=== PATIENT | male | born 1945 | race Caucasian/White ===

== ENCOUNTER 2022-06-28 15:39 | Day surgery (SDC) | payer MEDICARE, OTHER ==
[2022-06-28] MEDS ORDERED: BUPIVACAINE 0.5% VIAL IJ ONE (15:40)
[2022-06-28] MEDS ORDERED: Depo-Medrol 40 MG/ML IM ONE (15:40)
[2022-06-28] MEDS ORDERED: Sodium Chloride 0.9(Preservative Free) 10 ML IJ ONE (15:40)
--- NOTE | 2022-06-28 20:53 | XRAY ---
Indication: Right greater trochanter bursa injection. Intraoperative fluoroscopy provided for 9 seconds. Single digital spot image submitted for interpretation demonstrates needle tip projecting lateral to the right greater trochanter. Small amount of contrast injected for needle tip placement. Correlate with intraoperative findings/report.
--- NOTE | 2022-06-28 20:55 | XRAY ---
Indication: Right knee injection. Intraoperative fluoroscopy provided for 7 seconds. Single digital spot image submitted for interpretation demonstrates needle tip projecting over the right femur intercondylar notch. Small amount of contrast injected for needle tip placement. Correlate with intraoperative findings/report.
--- NOTE | 2022-06-28 20:56 | XRAY ---
Indication: Left knee injection. Intraoperative fluoroscopy provided for 5 seconds. Single digital spot image submitted for interpretation demonstrates needle tip projecting over the left femur intercondylar notch. Small amount of contrast injected for needle tip placement. Correlate with intraoperative findings/report.
--- NOTE | 2022-06-29 08:42 | XRAY ---
5 seconds of fluoroscopy was used in surgery for a left intra-articular knee injection.
--- NOTE | 2022-06-29 08:43 | XRAY ---
9 seconds of fluoroscopy was used in surgery for a right greater trochanteric bursa injection.
--- NOTE | 2022-06-29 08:43 | XRAY ---
7 seconds of fluoroscopy was used in surgery for a right intra-articular knee injection.
== END 2022-06-28 18:30 | disposition home or self-care (01) ==
LOC: SDC-PAIN 15:39
PROVIDERS: ATTEND Psychiatry & Neurology Pain Medicine
DX: M17.0 Bilateral primary osteoarthritis of knee (principal); M16.12 Unilateral primary osteoarthritis, left hip; Z79.899 Other long term (current) drug therapy
CPT/HCPCS: 20610; 20611; 73501; 73560; 76942; 77002; J1030; Q9966

== ENCOUNTER 2022-10-25 15:34 | Day surgery (SDC) | payer MEDICARE, OTHER ==
[2022-10-25] MEDS ORDERED: LIDOCAINE HCL 1% 50 MG/5 ML VL PF IJ ONE (15:35)
[2022-10-25] MEDS ORDERED: BUPIVACAINE 0.5% VIAL IJ ONE (15:35)
[2022-10-25] MEDS ORDERED: Depo-Medrol 40 MG/ML IM ONE (15:35)
--- NOTE | 2022-10-25 19:21 | XRAY ---
Indication: Left knee injection. Intraoperative fluoroscopy provided for 6 seconds. Single digital spot images submitted for interpretation demonstrates needle tip projecting over the left femur intercondylar notch. Small amount of contrast injected for needle tip placement. Correlate with intraoperative findings/report.
--- NOTE | 2022-10-25 19:21 | XRAY ---
Indication: Right knee injection. Intraoperative fluoroscopy provided for 11 seconds. Single digital spot images submitted for interpretation demonstrates needle tip projecting over the right femur intercondylar notch. Small amount of contrast injected for needle tip placement. Correlate with intraoperative findings/report.
--- NOTE | 2022-10-26 09:04 | XRAY ---
11 seconds of fluoroscopy was used in surgery for a right intra-articular knee and pes anserine bursa injection.
--- NOTE | 2022-10-26 09:05 | XRAY ---
6 seconds of fluoroscopy was used in surgery for a left intra-articular knee and pes anserine bursa injection.
== END 2022-10-25 18:15 | disposition home or self-care (01) ==
LOC: SDC-PAIN 15:34
PROVIDERS: ATTEND Psychiatry & Neurology Pain Medicine
DX: M17.0 Bilateral primary osteoarthritis of knee (principal); M70.51 Other bursitis of knee, right knee; M70.52 Other bursitis of knee, left knee; Z79.899 Other long term (current) drug therapy
CPT/HCPCS: 20610; 73560; 77002; 82947; J1030; J2001; Q9966

== ENCOUNTER 2024-01-02 13:40 | Day surgery (SDC) | payer MEDICARE, OTHER ==
[2024-01-02] MEDS ORDERED: Depo-Medrol 40 MG/ML IM ONE (13:41)
[2024-01-02] MEDS ORDERED: LIDOCAINE HCL 1% 50 MG/5 ML VL PF IJ ONE (13:41)
[2024-01-02] MEDS ORDERED: BUPIVACAINE 0.5% VIAL IJ ONE (13:41)
--- NOTE | 2024-01-02 20:13 | XRAY ---
Indication: Right knee injection Intraoperative fluoroscopy provided for 16 seconds. 2 digital spot image submitted for interpretation demonstrates needle tip projecting over the right femur intercondylar notch. Small amount of contrast injected for needle tip placement. Correlate with intraoperative findings/report.
--- NOTE | 2024-01-03 21:05 | XRAY ---
16 seconds of fluoroscopy was used in surgery for a right intra-articular knee injection.
== END 2024-01-02 17:11 | disposition home or self-care (01) ==
LOC: SDC-PAIN 13:40
PROVIDERS: ATTEND Psychiatry & Neurology Pain Medicine
DX: M17.11 Unilateral primary osteoarthritis, right knee (principal); Z79.899 Other long term (current) drug therapy
CPT/HCPCS: 20610; 73560; 77002; 82947; J2001; Q9966

== ENCOUNTER 2024-04-23 13:51 | Day surgery (SDC) | payer MEDICARE, OTHER ==
--- NOTE | 2024-04-23 17:00 | XRAY ---
Indication: Right knee injection. Intraoperative fluoroscopy provided for 6 seconds. Single digital spot images submitted for interpretation demonstrates needle tip projecting over right femur intercondylar notch. Small amount of contrast injected for needle tip placement. Correlate with intraoperative findings/report.
--- NOTE | 2024-04-23 17:01 | XRAY ---
6 seconds of fluoroscopy was used in surgery for a right intra-articular knee injection.
== END 2024-04-23 15:38 | disposition home or self-care (01) ==
LOC: SDC-PAIN 13:51
PROVIDERS: ATTEND Psychiatry & Neurology Pain Medicine
DX: M17.11 Unilateral primary osteoarthritis, right knee (principal); M70.51 Other bursitis of knee, right knee
CPT/HCPCS: 20550; 20610; 73560; 77002; 77003; 82947; Q9966

== ENCOUNTER 2025-01-03 12:35 | Emergency (ER) | payer MEDICARE, OTHER ==
[2025-01-03 13:16] VITALS: TEMP 97.2
--- NOTE | 2025-01-03 13:25 | ERPHSYRPT ---
- History of Present Illness Time Seen by Provider: 01/03/25 13:10 Source: patient Patient Subjective Stated Complaint: patient was cleaning out dog kennel 2 days ago began having mid level backpain, now pain is into lower back and having trouble walking Triage Nursing Assessment: jonathon brought to ED by his daughter, he is having ongoing back pain which started following cleaning dog kennel two days ago, has caused numbness and tingling in legs nad arms and first day wasnt able to even raise his arms above his shoulders. patient is alert and orientedx4, skin warm dry and intact, has tenderness in middle of back and upper area over left shoulder blade. Physician History: This is a 79-year-old male who presents with several days upper back pain has gradually started radiating to the right anterior chest patient describes this pain as sharp worse with movement patient denies any associated substernal chest pain or pressure or heaviness any cough hemoptysis shortness of breath dysuria pyuria hematuria patient does state he gets occasional numbness in his hands. No neck pain no head trauma and no flank pain Allergies/Adverse Reactions: No Known Drug Allergies Allergy (Verified 01/03/25 13:29) Home Medications: Carvedilol 3.125 mg [Coreg 3.125 MG] 3.125 mg PO BID 01/03/25 [History] Clopidogrel Bisulfate [Plavix] 75 mg PO DAILY 01/03/25 [History] Evolocumab [Repatha Syringe] 140 mg SQ QDP 01/03/25 [History] Ezetimibe 10 mg [Zetia 10 MG] 10 mg PO DAILY 01/03/25 [History] Famotidine 20 mg [Pepcid 20 MG] 20 mg PO DAILY 01/03/25 [History] Furosemide 20 mg [Lasix 20 mg] 20 mg PO DAILY 01/03/25 [History] Metformin HCl [Metformin ER Osmotic] 1,000 mg PO BID 01/03/25 [History] PANTOPRAZOLE 40 mg Tablet [Protonix 40MG Tablet] 40 mg PO DAILY 01/03/25 [History] Hx Tetanus, Diphtheria Vaccination/Date Given: Yes Hx Influenza Vaccination/Date Given: No Hx Pneumococcal Vaccination/Date Given: Yes Immunizations Up to Date: Yes Travel Risk - International Travel Have you traveled outside of the country in past 3 weeks: No - Emerging Infectious Disease Are you exhibiting symptoms associated with any current EIDs: No - Review of Systems Constitutional: No Fever, No Chills Eyes: No Symptoms Ears, Nose, & Throat: No Symptoms Respiratory: No Cough, No Dyspnea Cardiac: Chest Pain, No Edema, No Syncope Abdominal/Gastrointestinal: No Abdominal Pain, No Nausea, No Vomiting, No Diarrhea Genitourinary Symptoms: No Dysuria Musculoskeletal: Back Pain, No Neck Pain Skin: No Rash Neurological: No Dizziness, No Focal Weakness, No Sensory Changes Psychological: No Symptoms Endocrine: No Symptoms All Other Systems: Reviewed and Negative - Past Medical History Pertinent Past Medical History: Yes Neurological History: No Pertinent History Cardiac History: High Cholesterol, Hypertension Respiratory History: No Pertinent History Endocrine Medical History: No Pertinent History Musculoskeletal History: Arthritis Other Medical History: PSH: L KNEE FRACTURE AND ORIF A CHILD. PMH:NONE - Past Surgical History Past Surgical History: Yes Cardiac: Cardiac Catheterization, Cardiac Stent Musculoskeletal: Orthopedic Surgery, Other - Social History Smoking Status: Never smoker Exposure to second hand smoke: No - Social Determinants of Health Will the patient participate in the screening: Yes Do you worry about a steady place to live?: No Do you have any problems with any of the following?: No known problems In the past 12 months,have you had to go without utilities?: No Transportation Issues: No Has anyone in your support network made you feel unsafe?: No Have you or anyone in your house had to go w/o enough food: No - Nursing Vital Signs Nursing Vital Signs: Initial Vital Signs Blood Pressure 152/91 01/03/25 13:08 O2 Sat by Pulse Oximetry 96 01/03/25 13:08 Pain Scale Pain Intensity [Upper 10 Posterior Back] Pain Intensity 7 - Physical Exam General Appearance: no apparent distress, alert Eye Exam: PERRL/EOMI, eyes nml inspection Neck Exam: normal inspection, non-tender, supple, full range of motion, No meningismus, No midline tenderness Respiratory Exam: normal breath sounds, lungs clear, No respiratory distress Cardiovascular Exam: regular rate/rhythm, normal heart sounds Gastrointestinal Exam: soft, No tenderness, No mass Back Exam: other (Patient with Bilateral paravertebral tenderness of the thoracic spine no midline tenderness crepitus or step-off lesions) Extremity Exam: normal inspection, normal range of motion, No calf tenderness, No pedal edema Neurologic Exam: alert, oriented x 3, cooperative, chief data officer II-XII nml as tested, normal mood/affect, nml station & gait, sensation nml, No motor deficits Skin Exam: normal color, warm, dry, No rash SpO2: 98 Ordered Tests: Active Orders 24 hr Category Date Time Status EKG-ER Only STAT Care 01/03/25 16:02 Active CHEST 1 VIEW (PORTABLE) Stat Exams 01/03/25 13:19 Taken CBC W DIFF Stat Lab 01/03/25 13:30 Completed CMP Stat Lab 01/03/25 13:30 Completed TROPONIN Stat Lab 01/03/25 13:30 Completed Medication Summary Discontinued Medications Generic Name Dose Route Start Last Admin Trade Name Francisco PRN Reason Stop Dose Admin Cyclobenzaprine HCl 5 mg 01/03/25 13:21 01/03/25 13:43 Cyclobenzaprine Hcl 10 Mg Tablet PO 01/03/25 13:22 5 mg STAT ONE Administration Cyclobenzaprine HCl Confirm 01/03/25 13:40 Cyclobenzaprine Hcl 10 Mg Tablet Administered 01/03/25 13:41 Dose 10 mg .ROUTE .STK-MED ONE Ketorolac Tromethamine 15 mg 01/03/25 13:20 01/03/25 13:41 Ketorolac Tromethamine 30 Mg/Ml Inj IV 01/03/25 13:21 15 mg STAT ONE Administration Ketorolac Tromethamine Confirm 01/03/25 13:40 Ketorolac Tromethamine 30 Mg/Ml Inj Administered 01/03/25 13:41 Dose 30 mg .ROUTE .STK-MED ONE Lab/Rad Data: Laboratory Result Diagrams 01/03/25 13:30 01/03/25 13:30 Laboratory Results 01/03/25 01/03/25 Range/Units 13:30 13:30 WBC 7.7 (4.23-9.07) x10^3/uL RBC 4.63 (4.63-6.08) x10^6/uL Hgb 14.3 (13.7-17.5) g/dL Hct 43.0 (40.1-51.0) % MCV 92.9 H (79.0-92.2) fL MCH 30.9 (25.7-32.2) pg MCHC 33.3 (32.3-36.5) g/dL RDW 13.3 (11.6-14.4) % Plt Count 221 (163-337) x10^3/uL MPV 9.3 L (9.4-12.4) fL Gran % 61.6 (34.0-67.9) % Immature Gran % (Auto) 0.4 (0.001-0.429) % Nucleat RBC Rel Count 0.0 (0.00-0.2) % Eos # (Auto) 0.26 (0.04-0.54) x10^3/uL Immature Gran # (Auto) 0.03 (0.001-0.031) x10^3u/L Absolute Lymphs (auto) 1.38 (1.32-3.57) x10^3/uL Absolute Monos (auto) 1.21 H (0.30-0.82) x10^3/uL Absolute Nucleated RBC 0.00 (0.00-0.012) x10^3u/L Lymphocytes % 17.8 L (21.8-53.1) % Monocytes % 15.6 H (5.3-12.2) % Eosinophils % 3.4 (0.8-7.0) % Basophils % 1.2 (0.2-1.2) % Absolute Granulocytes 4.77 (1.78-5.38) x10^3/uL Basophils # 0.09 H (0.01-0.08) x10^3/uL Sodium 137 (135-145) mmol/L Potassium 4.4 (3.5-5.1) mmol/L Chloride 103 (98-107) mmol/L Carbon Dioxide 27 (22-30) mmol/L Anion Gap 12.4 (5-15) MEQ/L BUN 18 (9-20) mg/dL Creatinine 0.87 (0.66-1.25) mg/dL Estimated GFR 88.9 ML/MIN Glucose 165 H (74-106) mg/dL Calcium 9.4 (8.4-10.2) mg/dL Total Bilirubin 1.10 (0.2-1.3) mg/dL AST 24 (17-59) U/L ALT 26 (0-50) U/L Alkaline Phosphatase 108 (38-126) U/L Troponin I < 0.012 (0.000-0.033) ng/mL Serum Total Protein 7.4 (6.3-8.2) g/dL Albumin 4.4 (3.5-5.0) g/dL - Progress Progress: improved Progress Note: The patient had twelve-lead EKG was sinus rhythm nonspecific ST-T wave changes patient chest x-ray read by the radiologist negative patient CBC within normal limits chemistry remarkable glucose 165 troponin was negative. In the emergency room patient was given Toradol and Flexeril improvement in symptoms more likely this is a musculoskeletal upper back strain I will discharge patient on prednisone and Flexeril to follow-up with his doctor in 2 to 3 days differential diagnosis sprain strain 01/03/25 16:10 - Departure Departure Disposition: Home Clinical Impression: Thoracic back sprain Condition: Good Critical Care Time: No Referrals: ROBYN CORREA [Primary Care Provider, EMERGENCY MEDICINE] - Follow up/PCP as directed Instructions: Low Back Pain (DC) Prescriptions: Cyclobenzaprine HCl 10 mg [Flexeril 10 MG] 10 mg PO TID #12 tablet Prednisone 10 mg [Deltasone 10 mg] 50 mg PO DAILY #25 tablet
[2025-01-03] MEDS ORDERED: TORAdol 30 mg Injection ONE (13:40)
[2025-01-03] MEDS ORDERED: Cyclobenzaprine 10 MG ONE (13:40)
[2025-01-03] MEDS: TORAdol 30 mg Injection IV ONE (13:41)
[2025-01-03] MEDS: Cyclobenzaprine 10 MG PO ONE (13:43)
[2025-01-03 14:11] LABS: BASOPHIL % 1.2 % (0.2-1.2); Basophil (Absolute #) 0.09 x10^3/uL (0.01-0.08); Eosinophil (Absolute #) 0.26 x10^3/uL (0.04-0.54); Hematocrit 43.0 % (40.1-51.0); Hemoglobin 14.3 g/dL (13.7-17.5); IMMATURE GRAN # 0.03 x10^3u/L (0.001-0.031); IMMATURE GRAN % 0.4 % (0.001-0.429); Lymphocyte (Absolute #) 1.38 x10^3/uL (1.32-3.57); Mean Corpuscular Hemoglobin 30.9 pg (25.7-32.2); Mean Corpuscular Hgb Concent. 33.3 g/dL (32.3-36.5); Monocyte (Absolute #) 1.21 x10^3/uL (0.30-0.82); NUCLEATED RBC # 0.00 x10^3u/L (0.00-0.012); NUCLEATED RBC % 0.0 % (0.00-0.2); Platelet Count 221 x10^3/uL (163-337); Red Blood Count 4.63 x10^6/uL (4.63-6.08); White Blood Count 7.7 x10^3/uL (4.23-9.07)
[2025-01-03 14:40] LABS: Calcium 9.4 mg/dL (8.4-10.2); Carbon Dioxide 27 mmol/L (22-30); Creatinine 1 0.87 mg/dL (0.66-1.25); EST GLOMERULAR FILTRATION RATE 88.9 ML/MIN; Glucose 165 mg/dL (74-106); Potassium 4.4 mmol/L (3.5-5.1); SGOT/AST 24 U/L (17-59); SGPT/ALT 26 U/L (0-50); TROPONIN < 0.012 ng/mL (0.000-0.033); Total Protein 7.4 g/dL (6.3-8.2)
[2025-01-03 17:11] VITALS: O2SAT 97
[2025-01-03 18:08] VITALS: BP 110/53; PULSE 86; RESP 16
--- NOTE | 2025-01-03 20:21 | XRAY ---
Indication: Chest pain. Comparison: June 07, 2007 Portable chest demonstrates new mild right hemidiaphragm elevation with adjacent subsegmental atelectasis/scarring. Remaining heart and lungs unremarkable again with incidental small left hilar calcified nodes. Bony thorax intact with osteopenia and mild degenerative changes. Impression: Nonacute chest with chronic features.
== END 2025-01-03 18:08 | disposition home or self-care (01) ==
LOC: ED 12:35
DX: S23.3XXA Sprain of ligaments of thoracic spine, initial encounter (principal); X50.3XXA Overexertion from repetitive movements, initial encounter; X50.0XXA Overexertion from strenuous movement or load, initial encounter; I10 Essential (primary) hypertension; Z79.02 Long term (current) use of antithrombotics/antiplatelets; Z79.84 Long term (current) use of oral hypoglycemic drugs; Z79.899 Other long term (current) drug therapy

== ENCOUNTER 2025-01-29 08:15 | Day surgery (SDC) | payer MEDICARE, OTHER ==
--- NOTE | 2025-01-22 11:09 | HP ---
HISTORY OF PRESENT ILLNESS: The patient is a 79-year-old male who presents with a history of polyps. He had a scope several years ago. He had some breakthrough heartburn. He takes some Pepcid. PAST MEDICAL HISTORY: Coronary artery disease, hypertension, hyperlipidemia, diabetes. MEDICATIONS: Pepcid, Repatha, Zetia, Plavix, Lasix, carvedilol, metformin. PAST SURGICAL HISTORY: Cardiac stents, hernia repair, leg procedure. FAMILY HISTORY: Heart disease. SOCIAL HISTORY: Negative. ALLERGIES: Negative. REVIEW OF SYSTEMS: CONSTITUTIONAL: Denies fever or chills. CHEST: Denies shortness of breath. CARDIOVASCULAR: Regular rate and rhythm. ABDOMEN: Soft. PHYSICAL EXAMINATION: GENERAL: No acute distress. CARDIOVASCULAR: Regular rate and rhythm. RESPIRATORY: Nonlabored. No shortness of breath. ABDOMEN: Soft. ASSESSMENT: Epigastric pain, history of polyps. PLAN: EGD and colonoscopy with Dr. Vicente Reynaga. This report was dictated for Dr. Reynaga by Tia Enriquez NP.
[2025-01-29] MEDS ORDERED: Lactated Ringers 1,000 ML IV ONE (08:17)
[2025-01-29] MEDS: Lactated Ringers 1,000 ML IV SCH (08:41)
[2025-01-29] MEDS ORDERED: propofoL IV ONE ×2 (10:59→11:06)
[2025-01-29 11:47] VITALS: O2SAT 95
[2025-01-29 11:56] VITALS: BP 147/78; PULSE 58; RESP 16; TEMP 97.6
--- NOTE | 2025-01-30 10:49 | OP ---
SURGERY DATE/TIME: 01/29/2025 [id number] PREOPERATIVE DIAGNOSES: 1) Breakthrough epigastric pain. He has been on medication. 2) Five-year followup polyps. POSTOPERATIVE DIAGNOSES: 1) Mild hemorrhagic gastritis. He has been on medication. It looks like there has been just a little breakthrough. He probably could double his previous medicine for 4 to [address] Johnson. 2) Colonoscopic examination of the cecum, hot polypectomy of 1 cm polyp of the cecum, moderate sigmoid diverticulosis, moderate internal hemorrhoids. Anticipate followup. Unless he is symptomatic, I would think this visit is his last screening colonoscopic examination. PROCEDURES: 1) Colonoscopy to cecum with hot polypectomy x1. 2) Esophagogastroduodenoscopy. SURGEON: Vicente Reynaga MD ANESTHESIA: General. COMPLICATIONS: None. CONDITION: Stable. DESCRIPTION OF PROCEDURE AND FINDINGS: Patient was taken to endoscopy, left lateral decubitus position. Scope introduced. Pharyngoesophageal junction normal. Esophagus normal. Down the EG junction, very light GERD. Fundus, body, antrum, there was some mild hemorrhagic gastritis in the body and antrum, it is very light, but there were old flecks of black blood. In general, he has been in pretty good control. Pylorus normal. Duodenal bulb normal. Second portion normal. Scope was looped upon itself satisfactory from below. Scope withdrawn. Impression: Very mild hemorrhagic gastritis. Anal digital examination, satisfactory tone. Scope introduced. Rectum satisfactory, moderate internal hemorrhoids. Scope advanced to the cecum, base of cecum, ileocecal valve. Base of cecum, a 1 cm polyp taken with hot biopsy forceps to extinction. Ascending, hepatic, transverse, splenic, descending sigmoid, moderate sigmoid diverticulosis, rectum, anus, moderate internal hemorrhoids. The patient tolerated procedure satisfactory. This certainly would be his last screening exam unless he has symptoms, and his stomach was very mild. Would recommend a transient increase in his medication.
== END 2025-01-29 12:07 | disposition home or self-care (01) ==
LOC: SDC 08:15
PROVIDERS: ATTEND Surgery
DX: Z09 Encounter for follow-up examination after completed treatment for conditions other than malignant neoplasm (principal); Z86.0100 Personal history of colon polyps, unspecified; R10.13 Epigastric pain; K29.71 Gastritis, unspecified, with bleeding; K57.30 Diverticulosis of large intestine without perforation or abscess without bleeding; K64.8 Other hemorrhoids; E11.9 Type 2 diabetes mellitus without complications; D12.0 Benign neoplasm of cecum